=== PATIENT | male | born 1960 | race Caucasian/White ===

== ENCOUNTER 2022-07-08 08:16 | Outpatient (CLI) | payer OTHER, SELFPAY | END 2022-07-08 08:17 | disposition home or self-care (01) | PROVIDERS: PCP Family Medicine; Visit Provider Family Medicine | DX: Z00.00 Encounter for general adult medical examination without abnormal findings (principal); E03.9 Hypothyroidism, unspecified; E78.00 Pure hypercholesterolemia, unspecified; M10.9 Gout, unspecified; I10 Essential (primary) hypertension | CPT/HCPCS: 80053; 80061; 84153; 84270; 84402; 84403; 84443; 84550 ==

== ENCOUNTER 2022-11-24 08:04 | Outpatient (CLI) | payer OTHER, SELFPAY | END 2022-11-24 08:05 | disposition home or self-care (01) | LOC: NFLDREF 11-25 14:08 | PROVIDERS: PCP Family Medicine; Referring Provider Family Medicine; Visit Provider Family Medicine | DX: Z00.00 Encounter for general adult medical examination without abnormal findings (principal); E03.9 Hypothyroidism, unspecified; E78.00 Pure hypercholesterolemia, unspecified; I10 Essential (primary) hypertension; R79.89 Other specified abnormal findings of blood chemistry | CPT/HCPCS: 80053; 80061; 84270; 84402; 84403; 84443 ==

== ENCOUNTER 2024-02-19 07:52 | Outpatient (CLI) | payer OTHER, SELFPAY ==
--- OUTSIDE RECORDS SUMMARY | 2024-02-20 15:53 | XMS_ITS | Referral Summary ---
Author Organization [facility] Address [address] [place] [address] Care Team Providers Care Cissp Name Role Phone [facility]- Primary Care Provider Vincent Butts MD Unavailable [phone] Rod Gonzalez MD Unavailable Allergies No known active allergies Medications Medication Sig Dispensed Refills Start Date End Date Status allopurinol (ZYLOPRIM) 300 MG tablet Take 300 mg by mouth daily. Active levothyroxine (SYNTHROID) 25 mcg/mL Take by mouth daily. Active Mometasone Furoate (NASONEX NA) [place] in nostril. Activ e nebivolol (BYSTOLIC) 5 MG tablet Take 5 mg by mouth daily. Active hydrocodone-acetamin ophen 5-325 MG per tabletIndications:Ac tlingit & haida appendicitis Take 1-2 tablets by mouth every 4 hours as needed. 30 tablet 04/09/2011 Active Additional Information Patient not taking.Reported on 10/26/2022 senna-docusate (SENOKOT-S;PERICOLAC E) 8.6-50 MG per tabletIndications:Ac tlingit & haida appendicitis Take 1-2 tablets by mouth 2 times daily. 30 tablet 0 04/09/2011 Active Additional Information Patient not taking.Reported on 10/26/2022 ATORVASTATIN CALCIUM PO 07/08/2022 Active LOSARTAN POTASSIUM PO 07/08/2022 Active ASPIRIN 81 PO Take 1 tablet by mouth 07/08/2022 Active fluticasone-salmeter ol (ADVAIR) 500-50 MCG/ACT inhaler Inhale 1 puff into the lungs every 12 hours Active albuterol (PROAIR HFA/PROVENTIL HFA/VENTOLIN HFA) 108 (90 Base) MCG/ACT inhaler Inhale 2 puffs into the lungs every 6 hours as needed for shortness of breath, wheezing or cough Active WEGOVY 1.7 MG/0.75ML pen INJECT 1.7 MG UNDER THE SKIN ONCE WEEKLY 10/11/2022 Active Active Problems No known active problems Immunizations Name Administration Dates Next Due COVID-19 Monovalent 18+ (Moderna) 08/13/2020, Social History Tobacco Use Types Packs/Day Years Used Date Smoking Tobacco: Never Tobacco Cessation:Counseling Given: Yes Alcohol Use Standard Drinks/Week Comments No 0 (1 standard drink = 0.6 oz pur e alcohol) Adolescent Education Answer Date Record ed Getting School Help Needed Not on file 01/22 Sex and Gender Information Value Date Recorded Sex Assigned at Not on file Gender Identity Not on file Sexual Orientation Not on file Last Filed Vital Signs Vital Sign Reading Time Taken Comments Blood Pressure 172/98 06/21/2022 6:46 PM TRUST ADMINISTRATIVE ASSISTANT Pulse 75 06/21/2022 6:46 PM TRUST ADMINISTRATIVE ASSISTANT Temperature 36.4 ??C (97.5 ??F) 06/21/2022 4:38 PM CS T Respiratory Rate 18 06/21/2022 6:46 PM TRUST ADMINISTRATIVE ASSISTANT Oxygen Saturation 99% 06/21/2022 6:46 PM TRUST ADMINISTRATIVE ASSISTANT Inhaled Oxygen Concentration - - Weight 108.2 kg (238 lb 8.6 oz) 04/08/2011 5:13 AM TRUST ADMINISTRATIVE ASSISTANT Height - - Body Mass Index - - Plan of Treatment Upcoming Encounters Date Type Department Care Team (Late st Contact Info) Description 04/17/2024 9:45 AM TRUST ADMINISTRATIVE ASSISTANT Office Visit [facility] [address] [address] Rod Gonzalez MD [address] [place] [address] [phone] Procedures Procedure Name Priority Date/Time Associated Diagnosis Comments BASIC METABOLIC PANEL STAT 06/21/2022 4:46 PM TRUST ADMINISTRATIVE ASSISTANT from Last 3 Months or Most Recently Relevant to Health Maintenance Results * (ABNORMAL) Basic metabolic panel (06/21/2022 4:46 PM TRUST ADMINISTRATIVE ASSISTANT) Sodium 141 136 - 145 mmol/L 06/21/2022 5:28 PM TRUST ADMINISTRATIVE ASSISTANT LABORATORY Potassium 4.4 3.4 - 5.3 mmol/L 06/21/2022 5:28 PM [facility] Chloride 103 98 - 107 mmol/L 06/21/2022 5:28 PM [facility] Carbon Dioxide (CO2) 29 22 - 29 mmol/L 06/21/2022 5:28 PM [facility] Anion Gap 9 7 - 15 mmol/L 06/21/2022 5:28 PM [facility] Urea Nitrogen 20.8 8.0 - 23.0 mg/dL 06/21/2022 5:28 PM [facility] Creatinine 0.99 0.67 - 1.17 mg/dL 06/21/2022 5:28 PM [facility] Calcium 9.8 8.8 - 10.2 mg/dL 06/21/2022 5:28 PM [facility] Glucose 106(H) 70 - 99 mg/dL 06/21/2022 5:28 PM [facility] GFR Estimate 87 >60 mL/min/1.7 3m2 06/21/2022 5:28 PM [facility] Comment:eGFR calculated usin g 2020 CKD-EPI equation. Blood BLOOD SPECIMEN / Unknown Venipuncture / Unknown 06/21/2022 4:46 PM TRUST ADMINISTRATIVE ASSISTANT 06/21/2022 4:54 PM TRUST ADMINISTRATIVE ASSISTANT Marcio Montalvo MD LAB - BLOOD ORDERABL ES LABORATORY [facility] [address] Lab (1st floor, no room number) [place] [address], [facility] [phone] from Last 3 Months or Most Recently Relevant to Health Maintenance Advance Directives For more information, please contact: [phone] * Full Code (Latest Code Status on File) Date Activated Date Inactivated Comments 04/08/2011 4:10 AM 04/09/2011 12:49 PM Care Teams Cissp Relationship Specialty Start Date End Date [facility]- [address] [place] [address] PCP - General 06/21/22 Vincent Butts MD [address] [place] [address] Dermatology 06/22/22 Rod Gonzalez MD [address] [place] [address] Assigned Surgical Provider 10/29/22
--- OUTSIDE RECORDS SUMMARY | 2024-02-20 15:53 | XMS_ITS | Clinical Summary ---
Author Organization [facility] Address [address] [place] [address] Care Team Providers Care Hvac Journeyman Name Role Phone [facility]- Primary Care Provider Vincent Butts MD Unavailable Rod Gonzalez MD Unavailable Allergies No known active allergies Medications Medication Sig Dispensed Refills Start Date End Date Status allopurinol (ZYLOPRIM) 300 MG tablet Take 300 mg by mouth daily. Active levothyroxine (SYNTHROID) 25 mcg/mL Take by mouth daily. Active Mometasone Furoate (NASONEX NA) [place] in nostril. Activ e nebivolol (BYSTOLIC) 5 MG tablet Take 5 mg by mouth daily. Active hydrocodone-acetamin ophen 5-325 MG per tabletIndications:Ac terrell appendicitis Take 1-2 tablets by mouth every 4 hours as needed. 30 tablet 04/09/2011 Active Additional Information Patient not taking.Reported on 10/26/2022 senna-docusate (SENOKOT-S;PERICOLAC E) 8.6-50 MG per tabletIndications:Ac terrell appendicitis Take 1-2 tablets by mouth 2 [...] Next Due COVID-19 Monovalent 18+ (Moderna) 08/13/2020, Family History Medical History Relation Comments Melanoma Father from [place] ma Relation Status Comments Father Social History Tobacco Use Types Packs/Day Years [...] Comments Blood Pressure 172/98 06/21/2022 6:46 PM SEALER DRY CELL Pulse 75 06/21/2022 6:46 PM SEALER DRY CELL Temperature 36.4 ??C (97.5 ??F) 06/21/2022 4:38 PM CS T Respiratory Rate 18 06/21/2022 6:46 PM SEALER DRY CELL Oxygen Saturation 99% 06/21/2022 6:46 PM SEALER DRY CELL Inhaled Oxygen Concentration - - Weight 108.2 kg (238 lb 8.6 oz) 04/08/2011 5:13 AM SEALER DRY CELL Height - - Body Mass Index - - Plan of Treatment Upcoming Encounters Date Type Department Care Team (Late st Contact Info) Description 04/17/2024 9:45 AM SEALER DRY CELL Office Visit [facility] [address] [phone] Rod Gonzalez MD [address] [place] [address] [phone] Health Maintenance Due Date Last Done Comments ADVANCE CARE PLANNING 1962 ANNUAL REVIEW OF HM ORDERS 1962 CT COLONOGRAPHY 1962 FIT 1962 FLEX SIG 1962 LIPID 1962 TSH W/FREE T4 REFLEX 1962 YEARLY PREVENTIVE VISIT 1962 sDNA (Cologuard) 1962 COLONOSCOPY 1972 COLORECTAL CANCER SCREENING 1972 HIV SCREENING 1977 HEPATITIS C SCREENING 1980 PHQ-2 (once per calendar year) 2023 COVID-19 Vaccine ( season) 2023 03/03/2023, 04/03/2022, 03/02/2021, Additional history exists INFLUENZA VACCINE (#1) 2023 , 03/23/2022, 01/22/2021, Additional history exists DTAP/TDAP/TD IMMUNIZATION (2 - Td or Tdap) 04/11/2025 04/11/2015 GLUCOSE 06/21/2025 06/21/2022, 12/2010, 04/07/2011 RSV VACCINE (1 - 1-dose 75+ series) 2037 ZOSTER IMMUNIZATION Completed 11/05/2021, 2 Pneumococcal Vaccine: Pediatrics (0 to 5 Years) and At-Risk Patients (6 to 64 Years) Aged Out 03/23/2022 No longer eligible based on patient's age to complete this topic HPV IMMUNIZATION Aged Out No longer e ligible based on patient's age to complete this topic MENINGITIS IMMUNIZATION Aged Out No l onger eligible based on patient's age to complete this topic RSV MONOCLONAL ANTIBODY Aged Out No l onger eligible based on patient's age to complete this topic Procedures Procedure Name Priority Date/Time Associated Diagnosis Comments BASIC METABOLIC PANEL STAT 06/21/2022 4:46 PM SEALER DRY CELL from Last 3 Months or Most Recently Relevant to Health Maintenance Results * (ABNORMAL) Basic metabolic panel (06/21/2022 4:46 PM SEALER DRY CELL) Sodium 141 136 - 145 mmol/L 06/21/2022 5:28 PM SEALER DRY CELL [facility] Potassium 4.4 3.4 - 5.3 mmol/L 06/21/2022 5:28 PM SEALER DRY CELL [facility] Chloride 103 98 - 107 mmol/L 06/21/2022 5:28 PM SEALER DRY CELL LABORATORY Carbon Dioxide (CO2) 29 22 - 29 mmol/L 06/21/2022 5:28 PM SEALER DRY CELL LABORATORY Anion Gap 9 7 - 15 mmol/L 06/21/2022 5:28 PM SEALER DRY CELL LABORATORY Urea Nitrogen 20.8 8.0 - 23.0 mg/dL 06/21/2022 5:28 PM SEALER DRY CELL LABORATORY Creatinine 0.99 0.67 - 1.17 mg/dL 06/21/2022 5:28 PM SEALER DRY CELL LABORATORY Calcium 9.8 8.8 - 10.2 mg/dL 06/21/2022 5:28 PM SEALER DRY CELL LABORATORY Glucose 106(H) 70 - 99 mg/dL 06/21/2022 5:28 PM SEALER DRY CELL LABORATORY GFR Estimate 87 >60 mL/min/1.7 3m2 06/21/2022 5:28 PM SEALER DRY CELL LABORATORY Comment:eGFR calculated usin 2020 CKD-EPI equation. Blood BLOOD SPECIMEN / Unknown Venipuncture / Unknown 06/21/2022 4:46 PM SEALER DRY CELL 06/21/2022 4:54 PM SEALER DRY CELL Marcio Montalvo MD LAB - BLOOD ORDERABL ES LABORATORY [facility] Lab [address] [facility] Lab (1st floor, no room number) [place] [address], [facility] [phone] from Last 3 Months or Most Recently Relevant to Health Maintenance Advance Directives For more information, please contact: [phone] * Full Code (Latest Code Status on File) Date Activated Date Inactivated Comments 04/08/2011 4:10 AM 04/09/2011 12:49 PM Care Teams Hvac Journeyman Relationship Specialty Start Date End Date [facility]- [address] [place] [address] PCP - General 06/21/22 Vincent Butts MD [address] [place] [address] Dermatology 06/22/22 Rod Gonzalez MD [address] [place] [address] Assigned Surgical Provider 10/29/22
--- OUTSIDE RECORDS SUMMARY | 2024-02-20 15:53 | XMS_ITS | Encounter Summary ---
Author Organization [facility] Address [address] [place] [address] Care Team Providers Care Dry House Tender Name Role Phone [facility]- Primary Care Provider Vincent Butts MD Unavailable + [phone] Rod Gonzalez MD Unavailable Encounter Details Date Type Department Care Team (Late st Contact Info) Description 08/14/2020 Documentation Only INTERFACED REPORT Unknown, Provider Social History Tobacco Use Types Packs/Day Years Used Date Smoking Tobacco: Never Alcohol Use Standard Drinks/Week Comments No 0 (1 standard drink = 0.6 oz pur e alcohol) Sex and Gender Information Value Date Recorded Sex Assigned at Not on file Gender Identity Not on file Sexual Orientation Not on file documented as of this encounter Plan of Treatment Upcoming Encounters Date Type Department Care Team (Late st Contact Info) Description 04/17/2024 9:45 AM CNC MILL OPERATOR Office Visit [facility] [address] [address] Rod Gonzalez MD [address] [place] [address] [phone] documented as of this encounter Visit Diagnoses Not on filedocumented in this encounter Care Teams Dry House Tender Relationship Specialty Start Date End Date [facility]- [address] [place] [address] PCP - General 06/21/22 Vincent Butts MD [address] [place] [address] Dermatology 06/22/22 Rod Gonzalez MD [address] [place] [address] Assigned Surgical Provider 10/29/22 documented as of this encounter
--- OUTSIDE RECORDS SUMMARY | 2024-02-20 15:53 | XMS_ITS | Clinical Summary ---
Author Organization [facility] Address [address] [place] [address] Care Team Providers Care Distribution Specialist Name Role Phone Unavailable Primary Care Provider Unavailabl e Source Comments You are receiving this document as you are listed as the primary care provider,follow-up provider, or the patient has been referred to you for consultation.This is in compliance with the Medicare andPrem[facility] Cent[facility]aid EHR Incentive Program,which states Providers who transition their patient to another setting of careor provider of care or refers their patient to another provider of care shouldprovide summary care record for each transition of care or referral. Rival[facility] Allergies No known active allergies Medications Medication Sig Dispensed Refills Start Date End Date Status ALBUterol sulfate HFA 108 (90 Base) MCG/ACT inhaler 07/03/2020 Active atorvastatin (LIPITOR) 40 MG tablet 08/24/2020 Active chlorhexidine gluconate (PERIDEX) 0.12 % solution 08/24/2020 Active ADVAIR DISKUS 500-50 MCG/DOSE inhaler 07/03/2020 Active SYNTHROID 150 MCG tablet 07/03/2020 Active losartan (COZAAR) 50 MG tablet 08/24/2020 Active CONTRAVE 8-90 MG TB12 09/02/2020 Act jessica BYSTOLIC 5 MG tablet 07/06/2020 Acti ve Social History Tobacco Use Types Packs/Day Years Used Date Smoking Tobacco: Never Assessed Sex and Gender Information Value Date Recorded Sex Assigned at Not on file Gender Identity Not on file Sexual Orientation Not on file Plan of Treatment Health Maintenance Due Date Last Done Comments Colon Cancer Screening Plan Due 1962 Hep C Screening (Preventive Services) 1962 PSA Screening Discussion 1962 HIV Screening (Preventive Services) 1978 Adult Preventive Visit 1980 Cholesterol 1997 COVID-19 Vaccine (4 - 2023-2 5 season) 2023 03/02/2021, 08/13/2020, 07/16/2020 Influenza (#1) 2023 01/22/2021, 02/25/2018, 03/07/2003 DTaP/Tdap/Td (2 - Tdap) 04/11/2025 04/11/2015 RSV (1 - 1-dose 75+ series) 2037 Zoster/Shingles Completed 11/05/2021, 08/01/2021 HepA Aged Out No longer eligi ble based on patient's age to complete this topic HepB Aged Out No longer eligi ble based on patient's age to complete this topic Hib Aged Out No longer eligi ble based on patient's age to complete this topic IPV (Polio) Aged Out No longer eligi ble based on patient's age to complete this topic RSV Aged Out No longer eligi ble based on patient's age to complete this topic MCV4 Aged Out No longer eligi ble based on patient's age to complete this topic Pneumococcal Aged Out No longer eligi ble based on patient's age to complete this topic
--- OUTSIDE RECORDS SUMMARY | 2024-02-20 15:53 | XMS_ITS | Encounter Summary ---
Author Organization [facility] Address [address] [place] [address] Care Team Providers Care Nut Grader Name Role Phone [facility]- Primary Care Provider Vincent Butts MD Unavailable + [phone] Rod Gonzalez MD Unavailable Encounter Details Date Type Department Care Team (Late st Contact Info) Description 07/17/2020 Documentation Only INTERFACED REPORT Unknown, Provider Social [...] st Contact Info) Description 04/17/2024 9:45 AM ENVIRONMENTAL FIELD OFFICE MANAGER Office Visit [facility] [address] [address] Rod Gonzalez MD [address] [place] [address] [phone] documented as of this encounter Visit Diagnoses Not on filedocumented in this encounter Care Teams Nut Grader Relationship Specialty Start Date End Date [facility]- [address] [place] [address] PCP - General 06/21/22 Vincent Butts MD [address] [place] [address] Dermatology 06/22/22 Rod Gonzalez MD [address] [place] [address] Assigned Surgical Provider 10/29/22 documented as of this encounter
--- OUTSIDE RECORDS SUMMARY | 2024-02-20 15:53 | XMS_ITS | Clinical Summary ---
Author Organization [facility] Address [place], [place] [address] Care Team Providers Care Liner Worker Name Role Phone Johnny Berry MD Primary Care Provider [phone] Allergies No known active allergies Medications Medication Sig Dispensed Refills Start Date End Date Status nitroglycerin (NITROSTAT) 0.4 mg sublingual tablet 07/26/2021 Active levothyroxine (Synthroid) 150 mcg tablet 07/03/2020 Active fluticasone propion-salmeteroL (Advair Diskus) 500-50 mcg/Dose diskus inhaler 07/03/2020 Active atorvastatin (LIPITOR) 40 mg tablet 10/03/2021 Active allopurinoL (ZYLOPRIM) 300 mg tablet 08/06/2021 Active albuterol HFA (PRO-AIR; VENTOLIN; PROVENTIL) 90 mcg/actuation inhaler 07/03/2020 Act jessica aspirin chewable 81 mg chewable tabletIndications:Cor onary artery disease involving [place]halen coronary artery of [place]en heart without angina pectoris Chew 1 Tablet (81 mg) by mouth once daily with a meal. 90 Tablet 3 10/04/2021 Active losartan (COZAAR) 50 mg tabletIndications:HTN (hypertension) Take 1 Tablet (50 mg) by mouth once daily. 90 Tablet 1 05/10/2022 Active nebivoloL (BYSTOLIC) 5 mg tab tabletIndications:HTN (hypertension) Take 0.5 Tablets (2.5 mg) by mouth once daily. DUE FOR ANNUAL FOLLOW UP TO RECEIVE REFILLS: [phone] 45 Tablet 10/10/2022 Active Wegovy 0.25 mg/0.5 mL pen 08/05/2022 Active Active Problems Problem Noted Date Diagnosed Date ASHD (arteriosclerotic heart disease) 12/05/2022 Dyslipidemia 12/05/2022 HTN (hypertension) 12/05/2022 Impaired fasting glucose 12/05/2022 Family History Medical History Relation Name Comments Heart Disease Brother stents Heart attack Father Heart Disease Sister Relation Name Status Comments Brother Father Sister Social History Tobacco Use Types Packs/Day Years Used Date Smoking Tobacco: Never Smokeless Tobacco: Never Alcohol Use Standard Drinks/Week Comments Yes 0 (1 standard drink = 0.6 oz pur e alcohol) a couple drinks per month. Social Connections Answer Date Recorded Frequency of Communication with Friends and Fami ly Not on file 2021 Financial Resource Strain Answer Date R ecorded Difficulty of Paying Living Expenses Not on file 2021 Difficulty of Paying Living Expenses Not on file 2021 Sex and Gender Information Value Date Recorded Sex Assigned at Not on file Gender Identity Not on file Sexual Orientation Not on file Obstetrics History Last Filed Vital Signs Vital Sign Reading Time Taken Comments Blood Pressure 118/64 12/05/2022 2:42 PM CDT Pulse 80 12/05/2022 2:42 PM CDT Temperature 36.7 ??C (98.1 ??F) 02/06/2022 2:30 PM CD T Respiratory Rate 16 02/06/2022 2:30 PM CDT Oxygen Saturation 95% 02/06/2022 2:30 PM CDT Inhaled Oxygen Concentration - - Weight 121.1 kg (267 lb) 12/05/2022 2:42 PM CDT Height - - Body Mass Index - - Plan of Treatment Health Maintenance Due Date Last Done Comments Tdap 1973 Depression screening for age 12+ 1974 HIV for age 15-65 1977 BMI (ht and wt on same day) for age 18+ 1980 Hepatitis C screening for ag e 18-79 1980 Tetanus booster 1982 Colonoscopy through age 75 2007 Lipids for age 45-75 2007 Zoster (shingles) series for age 50+ (1 of 2) 2012 COVID-19 vaccine series ( season) 2023 04/03/2022, 08/13/2020, 07/16/2020 Influenza for age 50-64 12/31/2023 Pneumococcal series for age 6-64 Aged Out No longer eligible b ased on patient's age to complete this topic Care Teams Liner Worker Relationship Specialty Start Date End Date Johnny Berry MD [address] [place] [address] PCP - General Family Practice 08/21/20
--- OUTSIDE RECORDS SUMMARY | 2024-02-20 15:53 | XMS_ITS | Encounter Summary ---
Author Organization [facility] Address [address] [place] [address] Care Team Providers Care Vegetable Grower Name Role Phone [facility]- Primary Care Provider Vincent Butts MD Unavailable + [phone] Rod Gonzalez MD Unavailable Encounter Details Date Type Department Care Team (Late st Contact Info) Description 10/04/2022 MyC Medical Advice [address] [phone] Marni Gardner RN Social History Tobacco Use Types Packs/Day Years [...] st Contact Info) Description 04/17/2024 9:45 AM TRIGONOMETRY TUTOR Office Visit [address] [phone] Rod Gonzalez MD [address] [place] [address] [phone] documented as of this encounter Visit Diagnoses Not on filedocumented in this encounter Care Teams Vegetable Grower Relationship Specialty Start Date End Date [facility]- [address] [place] [address] PCP - General 06/21/22 Vincent Butts MD [address] [place] [address] Dermatology 06/22/22 Rod Gonzalez MD [address] [place] [address] Assigned Surgical Provider 10/29/22 documented as of this encounter
== END 2024-02-19 07:53 | disposition home or self-care (01) ==
LOC: NFLDREF 02-20 15:50
PROVIDERS: PCP Family Medicine; Referring Provider Family Medicine; Visit Provider Family Medicine
DX: Z00.00 Encounter for general adult medical examination without abnormal findings (principal); I10 Essential (primary) hypertension; I25.10 Atherosclerotic heart disease of native coronary artery without angina pectoris; E78.00 Pure hypercholesterolemia, unspecified; E03.9 Hypothyroidism, unspecified; E66.9 Obesity, unspecified; R79.89 Other specified abnormal findings of blood chemistry; M10.9 Gout, unspecified; Z12.5 Encounter for screening for malignant neoplasm of prostate
CPT/HCPCS: 80048; 80053; 80061; 84443; 84550; G0103

== ENCOUNTER 2025-02-20 08:10 | Outpatient (CLI) | payer BC, SELFPAY | END 2025-02-20 08:11 | disposition home or self-care (01) | LOC: NFLDREF 02-22 17:30 | PROVIDERS: PCP Family Medicine; Referring Provider Family Medicine; Visit Provider Family Medicine | DX: I25.2 Old myocardial infarction (principal); R79.89 Other specified abnormal findings of blood chemistry; E03.9 Hypothyroidism, unspecified; E78.00 Pure hypercholesterolemia, unspecified; I10 Essential (primary) hypertension; R53.83 Other fatigue | CPT/HCPCS: 80053; 80061; 84270; 84402; 84403; 84443; 84550; G0103 ==